=== PATIENT | female | born 1950 | race Caucasian/White ===

== ENCOUNTER 2016-08-15 09:47 | Outpatient (CLI) | payer OTHER ==
[~2016-08-15] VITALS: Ht 154.3 cm; Wt 99.8 kg
[~2016-08-15 09:47] MED LIST: ASCO100025 PO; CETI10TA17 PO; DULO60CA6 PO; FAMO20TA5 PO; FISH1CAP15 PO; FLUT9.9S NS; HYDR-3812 PO; HYDR50TA3 PO; LANS30CA PO; LOSA25TA5 PO; METO-272 PO; MNTL10T PO; ORPH100T PO; TRAM-42 PO
[2016-08-15] MEDS ORDERED: MALIC ACID PO (10:08)
[2016-08-15] MEDS ORDERED: IODI150T PO (10:08)
[2016-08-15] MEDS ORDERED: FAMO20TA3 PO (10:08)
[2016-08-15] MEDS ORDERED: POTASSIUM PO (10:08)
[2016-08-15 10:09] VITALS: BP 153/86
[2016-08-15] MEDS ORDERED: NAPR220T66 PO (10:21)
== END 2016-08-15 10:20 | disposition home or self-care (01) ==
LOC: PREOP 09:47
PROVIDERS: ATTEND Orthopaedic Surgery
DX: Z01.818 Encounter for other preprocedural examination (principal); Z11.2 Encounter for screening for other bacterial diseases; M23.8X2 Other internal derangements of left knee
CPT/HCPCS: 87081

== ENCOUNTER 2016-08-31 06:00 | Day surgery (SDC) | payer OTHER ==
--- NOTE | 2016-08-25 14:19 | HISTORY AND PHYSICAL ---
DATE OF SERVICE: 08/31/2016 HISTORY: The patient is a 65-year-old female with longstanding left knee pain swelling, catching and locking. Radiographs revealed moderate joint space narrowing, and the patient understands that an arthroscopy can help with her mechanical symptoms but will not alleviate her arthritic symptoms. She reports painful popping and swelling in her left knee. She reports pain with testing and kneeling. She reports it is not improved with injections, anti-inflammatories or rest and because of functional impairment, the patient has elected to proceed with surgical intervention. REVIEW OF SYSTEMS: No chest pain, no shortness of breath, no dysuria. PAST MEDICAL HISTORY: Hypertension, fibromyalgia, food allergies and seasonal allergies. PAST SURGICAL HISTORY: Right ankle cholecystectomy, hysterectomy, tonsillectomy and wisdom tooth extraction. FAMILY HISTORY: Diabetes, hypertension, prostate cancer, arthritis, ischemic heart disease. PRIMARY CARE PROVIDER: [facility]. MEDICATIONS: Metoprolol, Famotidine, hydrochlorothiazide, Losartan, Duloxetine, Cetirizine, Lansoprazole and Flonase. ALLERGIES: PENICILLIN AND MORPHINE. SOCIAL HISTORY: The patient denies alcohol and tobacco use. PHYSICAL EXAMINATION: GENERAL: The patient is well-developed, well-nourished in no acute distress. HEENT: Normocephalic, atraumatic. Pupils are equal, round and react to light. Oropharynx is clear. NECK: Supple with no lymphadenopathy. LUNGS: Clear to auscultation bilaterally. HEART: Regular rate and rhythm. ABDOMEN: Soft, nontender and nondistended. EXTREMITIES: The left knee demonstrates a moderate effusion. She has patellofemoral crepitus and pain to the and she is tender along her medial joint line and has pain medially with Juan's. 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 She has pain medially with Juan's. She ambulates with an antalgic gait. 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 PLAN: Left knee arthroscopy, partial meniscectomy and chondroplasty. The risks, benefits, options, ramifications and recovery have been discussed at length with the patient. She understands and wishes to proceed. Job ID: [id number] DocumentID: [id number] Dictated Date: 08/25/2016 13:54:13 Drilling Supervisor Date: 08/25/2016 14:18:56 Dictated By: PELON WILLS MD
[~2016-08-31] VITALS: Ht 154.3 cm; Wt 99.8 kg
[~2016-08-31 06:00] MED LIST changes: +FAMO20TA3 PO; +IODI150T PO; +MALIC ACID PO; +NAPR220T66 PO; +POTASSIUM PO
[2016-08-31] MEDS ORDERED: CLINDAMYCIN 600 MG/50 ML IVPB 50 ML IV ONE (06:27)
[2016-08-31 06:30] VITALS: BP 147/71
[2016-08-31] MEDS ORDERED: FAMOTIDINE 20MG/2ML IV (PEPCID) ONE (06:41)
[2016-08-31] MEDS ORDERED: CLINDAMYCIN 600 MG/NS 50 ML IVPB IV ONE (06:45)
[2016-08-31] MEDS ORDERED: CATHETER FLUSH 10 ML SYR IV PRN (06:45)
[2016-08-31] MEDS ORDERED: LACTATED RINGERS 1,000 ML IV PRN (06:46)
[2016-08-31] MEDS ORDERED: fentaNYL INJECTION 100 MCG/2 ML AMP ONE (06:52)
[2016-08-31] MEDS ORDERED: proPOfol 200 MG/20 ML (DIPRIVAN) VIAL IV ONE (06:52)
[2016-08-31] MEDS ORDERED: SEVOFLURANE (ULTANE) 15 ML INHAL SOLN ONE (06:52)
[2016-08-31] MEDS ORDERED: MIDAZOLAM 2 MG/2 ML (VERSED) VIAL ONE (06:52)
[2016-08-31] MEDS ORDERED: LACTATED RINGERS 1,000 ML IV ONE (06:52)
[2016-08-31] MEDS ORDERED: LIDOCAINE PF 2% 10 ML (XYLOCAINE) AMP ONE (06:52)
[2016-08-31] MEDS ORDERED: ONDANSETRON 4 MG/2 ML (SDV) Z0FRAN ONE (06:52)
[2016-08-31] MEDS ORDERED: DEXAMETHASONE PF 10 MG/ML (DECADRON) VIAL ONE (06:53)
[2016-08-31] MEDS ORDERED: ROCURONIUM 50 MG/5 ML (ZEMURON) VIAL IV ONE (06:59)
[2016-08-31] MEDS ORDERED: FAMOTIDINE 20MG/2ML IV (PEPCID) IV ONE (07:00)
[2016-08-31] MEDS ORDERED: ONDANSETRON 4 MG/2 ML (SDV) Z0FRAN IV ONE (07:00)
[2016-08-31] MEDS ORDERED: morphine PF (DURAMORPH) 10 MG/10 ML AMP ONE (07:03)
[2016-08-31] MEDS ORDERED: BUPIVACAINE 0.25% 30 ML (SENSORCAINE) VIAL ONE (07:03)
--- NOTE | 2016-08-31 07:20 | Progress Note-Pre Operative ---
Pre-Operative Progress Note H&P Reviewed The H&P was reviewed, patient examined and no changes noted. Date H&P Reviewed: Aug 31, 2016 Time H&P Reviewed: 07:11 Pre-Operative Diagnosis: left knee medial meniscal tear and chondromalacia PELON WILLS MD Aug 31, 2016 07:20
--- NOTE | 2016-08-31 07:21 | Progress Note-Post Operative ---
Post-Operative Progess Note Surgeon (s)/Hammerer Helper (s) Surgeon PELON WILLS MD Hammerer Helper: Omari Ellis Pre-Operative Diagnosis left knee medial meniscal tear and chondromalacia Post-Operative Diagnosis left knee medial and lateral meniscal tears and chondromalacia of the medial femoral condyle, lateral tibial plateau and trochlea Post-Op Procedure Note Date of Procedure: Aug 31, 2016 Name of Procedure Performed: left knee arthroscopic partial medial and lateral meniscectomies and chondroplasty of the medial femoral condyle, lateral tibial plateau and trochlea Description of the Procedure: see operative note Findings of the Procedure medial and lateral meniscal tears and chondromalacia Anesthesia Type GETA Estimated blood loss (mL): minimal Packing: none Specimen(s) collected/removed none PELON WILLS MD Aug 31, 2016 07:21
[2016-08-31] MEDS ORDERED: HYDROcodone/APAP 7.5 MG/325 MG (LORTAB, LORCET PLUS) TABLET PO PRN (07:30)
[2016-08-31] MEDS ORDERED: GLYCOPYRROLATE 0.2 MG/ML (ROBINUL) 2 ML VIAL ONE (07:54)
[2016-08-31] MEDS ORDERED: NEOSTIGMINE (BLOXIVERZ ) 1 MG/1ML 10 ML VIAL ONE (07:54)
[2016-08-31] MEDS ORDERED: fentaNYL INJECTION 100 MCG/2 ML AMP IVP PRN (08:15)
[2016-08-31] MEDS ORDERED: KETOROLAC 30 MG/ML VIAL IVP ONE (08:15)
[2016-08-31] MEDS ORDERED: HYDROmorphone (DILAUDID) 2 MG/ML VIAL IVP PRN (08:15)
[2016-08-31] MEDS ORDERED: KETOROLAC 30 MG/ML VIAL ONE (08:39)
[2016-08-31] MEDS ORDERED: ONDANSETRON 4 MG/2 ML (SDV) Z0FRAN IVP PRN (09:00)
[2016-08-31 09:05] VITALS: BP 120/62
[2016-08-31] MEDS ORDERED: HYDR-3816 PO (09:30)
[2016-08-31 09:35] VITALS: BP 129/60
[2016-08-31 10:15] VITALS: BP 128/84
[2016-08-31 10:34] VITALS: BP 128/84
--- NOTE | 2016-08-31 10:50 | Physical Therapy Ortho Eval ---
PT Orthopedic Evaluation Type of Surgery Knee Scope Left knee TMM Prior Level of Function Current Living Status: Spouse Locomotion (Upon Admit): Independent Established Durable Medical Eq: Front Wheeled Walker Subjective Entry Into Home: Level Entry Motor Control Motor Control: Motor Control WNL ROM ROM: WFL Strength Strength: WFL Transfer Transfers (B, C, W/C) (FIM): 5 (initially, post treatment, mod indep) Gait Gait Assistive Device: FWW Gait training with FWW with cues for proper use and how to adjust walker at home ; training up/down a curb step with FWW as well. Pt safe with gait and on curb step. Post treatment, pt was mod indep with gait. Educated pt that she can use the walker as needed. Weight Bearing Restriction: Weight Bearing/Tolerated Location Restriction: L LE Gait (FIM): 5 (6 post treatment) Distance (FIM): 3=150 ft Treatment Rendered Treatment: Therapeutic Exercises, Gait Train, Step Train Exercise Instruction: Quad Sets, Straight Leg Raise, Heel Slides Assessment/Goals Goal Time Frame: 1 Visit Understands HEP: Yes Safe Ambulation: Yes Plan Treatment Plan: Discharge, Education, Gait PT/Family Agrees to Plan: Yes Time Time In: 955 Time Out: 1022 Total Billed Treatment Time: 27 Billed Treatment Time visit KIRILL SMITH PT Aug 31, 2016 10:50
--- NOTE | 2016-09-01 01:29 | OPERATIVE REPORT ---
DATE OF SERVICE: 08/31/2016 PREOPERATIVE DIAGNOSES: 1. Left knee medial meniscal tear. 2. Left knee chondromalacia medial femoral condyle. POSTOPERATIVE DIAGNOSES: 1. Left knee medial meniscal tear. 2. Left knee chondromalacia medial femoral condyle. 3. Left knee chondromalacia lateral tibial plateau. 4. Left knee chondromalacia of the trochlea. 5. Left knee lateral meniscal tear. PROCEDURES: 1. Left knee arthroscopic partial medial meniscectomy. 2. Left knee arthroscopic partial lateral meniscectomy. 3. Left knee arthroscopic chondroplasty of the medial femoral condyle. 4. Left knee arthroscopic chondroplasty of the lateral tibial plateau. 5. Left knee arthroscopic chondroplasty of the trochlea. SURGEON: Pelon Wills MD. HAIR WEAVER: KATHERYN Abraham, who assisted throughout the procedure and closed the incisions. ANESTHESIA: General endotracheal by , HAND SHAKER. TOURNIQUET TIME: ESTIMATED BLOOD LOSS: Minimal. DRAINS: None. COMPLICATIONS: None. POSTOPERATIVE PLAN: Routine arthroscopy protocol. The patient was transported to the recovery room awake and in stable condition. STATEMENT OF ORAL CONSENT: The patient is a 65-year-old female with progressively worsening left medial knee pain catching, locking and swelling. She had undergone treatment with activity modifications, anti-inflammatories and injections without relief. Due to functional impairment, the patient elected to proceed with surgical intervention. Radiographs revealed moderate medial joint space narrowing. The patient was counseled that an arthroscopy could help with her mechanical symptoms but would not alleviate her arthritic symptoms. EXAMINATION UNDER ANESTHESIA: Revealed range of motion 0/0/135. No varus or valgus laxity. Negative anterior and posterior drawer. ARTHROSCOPIC FINDINGS: The patella demonstrated diffuse grade 2 chondral softening centrally with no unstable chondral flaps and a 10x10 area of the trochlea demonstrating grade 3 chondral flap superiorly in a 10x10 area. The medial and lateral gutters were clear. The lateral compartment demonstrated a flap tear of the body of the lateral meniscus involving approximately 20% of the body. In addition, there was a grade 3 chondral flap on the lateral tibial plateau in an 8x8 area. The ACL and PCL were intact. The medial compartment demonstrated an unstable parrot beak tear of the body of the medial meniscus extending to the posterior horn involving approximately 30% of the body and posterior horn. There was grade 4 chondral loss in adjacent areas of the tibial plateau and femoral condyle in a 5x10 area medially and in the central portion, the weightbearing portion of the medial femoral condyle there was a grade 3 chondral flap in a 10x10 area. PROCEDURE: After risks and benefits of procedure were discussed and questions were answered, an informed consent was signed and placed on the chart. The operative site was confirmed in the preoperative holding area initialed by the surgeon. The patient was then transported to the operating room and after adequate levels of general endotracheal anesthetic were obtained, a timeout was called confirming the operative site and examination under anesthesia was performed with the above findings noted. The left lower extremity was then prepped and draped in the usual sterile fashion. The knee joint was injected with 60 cc of fluid and a standard inferior lateral portal was placed for the arthroscope and inflow cannula. Under direct visualization an inferior medial portal was created and diagnostic arthroscopy was carried out with the above findings noted. The unstable chondral flaps on the trochlea were debrided with the shaver back to a stable edge. The scope was then redirected into the lateral compartment where the unstable lateral meniscus tear was debrided with the shaver back to a stable edge, and the unstable chondral flap on the lateral tibial plateau was debrided with the shaver back to a stable a stable edge. The meniscus was carefully probed with no further tearing or instability noted. The scope was then redirected into the medial compartment where the unstable medial meniscus was debrided with the shaver back to a stable edge. This was carefully probed with no further tearing or instability noted. Then unstable chondral flaps in the medial femoral condyle were debrided with the shaver back to a stable edge as well. The knee was copiously irrigated. The port sites were closed with 3-0 nylon in a simple interrupted fashion. The port sites were infiltrated with plain Marcaine. A soft dressing was applied and the patient was transported to the recovery room awake and in stable condition. Job ID: [id number] DocumentID: [id number] Dictated Date: 08/31/2016 08:02:14 Clarity Specialists Date: 08/31/2016 19:56:55 Dictated By: PELON WILLS MD
== END 2016-08-31 10:34 | disposition home or self-care (01) ==
LOC: SDC 06:00
PROVIDERS: ATTEND Orthopaedic Surgery
DX: M23.8X2 Other internal derangements of left knee (principal); M94.29 Chondromalacia, multiple sites; I10 Essential (primary) hypertension; M79.7 Fibromyalgia; Z79.899 Other long term (current) drug therapy

== ENCOUNTER → 2017-01-10 | Outpatient (CLI) | payer OTHER ==
[~2017-01-10] MED LIST changes: +HYDR-3816 PO
--- NOTE | 2017-01-10 13:44 | Diagnostic Imaging Report ---
INDICATION: Screening. The current study was also evaluated with a Computer Aided Detection (CAD) system. Comparison made with prior examination 02/02/2015; 08/18/2014; 01/31/2014. FINDINGS: There is a moderate amount of residual fibroglandular tissue bilaterally. There are a few benign-type calcifications. There is a new ovoid mass in the subareolar region of the right breast. No spiculated lesion or suspicious calcifications are identified. IMPRESSION: Category 0, further imaging needed. ACR BI-RADS Category 0: Incomplete. (Needs additional imaging evaluation). Result letter will be mailed to the patient. Note: At least 10% of breast cancer is not imaged by mammography. Ovoid mass in the subareolar region of the right breast. Further evaluation spot compression views and ultrasound is recommended. Dictated by: Dictated on workstation # [id number]
== END ==
LOC: RAD 07:23
PROVIDERS: ATTEND Nurse Practitioner Community Health
DX: Z12.31 Encounter for screening mammogram for malignant neoplasm of breast (principal); N63 Unspecified lump in breast
CPT/HCPCS: 77067

== ENCOUNTER → 2017-01-23 | Outpatient (CLI) | payer OTHER ==
--- NOTE | 2017-01-23 10:57 | Diagnostic Imaging Report ---
Right breast diagnostic mammogram with tomography. CAD is utilized. INDICATION: Focal asymmetry in the periareolar region. FINDINGS: Periareolar mass in the medial superior periareolar region is confirmed and is circumscribed suggestive of benign etiology. It is about 1 cm in length and is oval in shape. IMPRESSION: Confirmed 1-cm mass in the periareolar medial superior aspect of the right breast with benign-appearing features. Ultrasound evaluation pending. ACR BI-RADS Category 0: Incomplete. (Needs additional imaging evaluation). Result letter will be mailed to the patient. Note: At least 10% of breast cancer is not imaged by mammography. Dictated by: Dictated on workstation # [id number]
--- NOTE | 2017-01-23 10:57 | Diagnostic Imaging Report ---
EXAMINATION: Right breast ultrasound. INDICATION: Mass in the medial superior periareolar region seen on mammography. FINDINGS: There is a 0.9 x 0.5 x 0.5 cm cystic lesion seen at the 1 o'clock zone 3 cm from the nipple with internal echogenicity, likely related to debris. No internal vascularity is seen. No suspicious mass is seen otherwise. IMPRESSION: There is a 0.9 cm cystic lesion with echogenicity, likely related to debris. A 6 month followup ultrasound is recommended to ensure no adverse development. ACR BI-RADS Category 3: Probably benign findings. Dictated by: Dictated on workstation # [id number]
== END ==
LOC: RAD 09:00
PROVIDERS: ATTEND Nurse Practitioner Community Health
DX: R92.8 Other abnormal and inconclusive findings on diagnostic imaging of breast (principal)

== ENCOUNTER → 2017-07-24 | Outpatient (CLI) | payer OTHER ==
[~2017-07-24] MED LIST changes: +ACHD5005 PO; +HYDR-34 PO; -HYDR-3812 PO; -HYDR-3816 PO
--- NOTE | 2017-07-24 12:09 | Diagnostic Imaging Report ---
INDICATION: Right breast complex cyst. The patient presents for a 6 month followup. COMPARISON: Right breast ultrasound from 01/23/2017. FINDINGS: Sonographic interrogation of the right breast was performed. The previously noted complex cyst at the 1 o'clock location is no longer visualized. No new mass is detected. IMPRESSION: The previously noted complex cyst has resolved at the 1 o'clock location. The patient should return to routine annual screening mammography. ACR BI-RADS Category 1: Negative. Dictated by: Dictated on workstation # [id number]
== END ==
LOC: RAD 10:27
PROVIDERS: ATTEND Nurse Practitioner Community Health
DX: Z09 Encounter for follow-up examination after completed treatment for conditions other than malignant neoplasm (principal); R92.8 Other abnormal and inconclusive findings on diagnostic imaging of breast

== ENCOUNTER → 2020-02-24 | Outpatient (CLI) | payer OTHER ==
--- NOTE | 2020-02-24 11:27 | Diagnostic Imaging Report ---
EXAMINATION: Digital mammogram INDICATION: Bilateral screening This study was compared to the prior exams of 01/10/2017 and 02/02/2015. At this time there are no current complaints. On the craniocaudad view of the left breast in the medial aspect of the breast approximately 11 cm from the nipple there is a small 5 mm asymmetry. This finding is not as conspicuous on the tomographic images and is difficult to identify with certainty on the MLO view. This may well be due to fibroglandular tissue alone. Even so, I would recommend that compression view of this area be obtained in the CC projection as well as a true lateral view of the left breast for further study. Ultrasound should also be performed. The right breast is unchanged. The fibroglandular tissue in both breasts is heterogeneously dense. This does limit the sensitivity of this exam. IMPRESSION: Additional mammographic views and ultrasound of the left breast would be recommended for further study. ACR category 0 ACR BI-RADS Category 0: Incomplete. (Needs additional imaging evaluation). Result letter will be mailed to the patient. Note: At least 10% of breast cancer is not imaged by mammography. Dictated by: Dictated on workstation # [id number]
== END ==
LOC: RAD 08:30
PROVIDERS: ATTEND Nurse Practitioner Community Health
DX: Z12.31 Encounter for screening mammogram for malignant neoplasm of breast (principal)
CPT/HCPCS: 77063; 77067

== ENCOUNTER → 2020-03-09 | Outpatient (CLI) | payer OTHER ==
--- NOTE | 2020-03-09 13:46 | Diagnostic Imaging Report ---
INDICATION: Left breast density. Patient presents for additional views. Correlation is made with recent screening study from 02/24/2020 as well as prior mammograms from 01/10/2017 and 02/02/2015. Unilateral left 2-D and 3-D diagnostic mammography was performed. This included spot compression CC, rolled CC and 90 degree lateral views. Circumscribed density in the medial left breast is not noted and has been present on prior mammograms is consistent with benign etiology. The density noted more anterior to this in the medial left breast appears to resolve with additional views and most likely represent superimposed tissue. No spiculated mass or malignant appearing microcalcifications are seen. IMPRESSION: BI-RADS Category 2 No mammographic features suspicious for malignancy are identified. Patient may return to routine annual screening mammography. ACR BI-RADS Category 2: Benign findings. Result letter will be mailed to the patient. Note: At least 10% of breast cancer is not imaged by mammography. Dictated by: Dictated on workstation # [id number]
== END ==
LOC: RAD 12:42
PROVIDERS: ATTEND Nurse Practitioner Community Health
DX: R92.2 Inconclusive mammogram (principal)
CPT/HCPCS: 77065; G0279

== ENCOUNTER 2020-05-26 05:33 | Outpatient (RCR) | payer OTHER ==
[~2020-05-26] VITALS: Ht 152.4 cm; Wt 102.3 kg
[2020-05-26] MEDS ORDERED: LOSA25TA41 PO (14:36)
[2020-05-26] MEDS ORDERED: HYDR50TA3 PO (14:36)
[2020-05-26] MEDS ORDERED: DULO60CA59 PO (14:36)
[2020-05-26] MEDS ORDERED: CETI10TA17 PO (14:36)
[2020-05-26] MEDS ORDERED: METO50TA7 PO (14:36)
[2020-05-26] MEDS ORDERED: LANS30TA9 PO (14:36)
[2020-05-26] MEDS ORDERED: FISH1CAP15 PO (14:36)
[2020-05-26] MEDS ORDERED: MONT10TA97 PO (14:36)
== END 2020-06-09 12:15 | disposition home or self-care (01) ==
LOC: PREOP 05:33
PROVIDERS: ATTEND Specialist
DX: Z01.812 Encounter for preprocedural laboratory examination (principal); H25.12 Age-related nuclear cataract, left eye; Z20.822 Contact with and (suspected) exposure to COVID-19
CPT/HCPCS: 87635

== ENCOUNTER 2020-05-29 06:03 | Day surgery (SDC) | payer MEDICARE, OTHER ==
[~2020-05-29] VITALS: Ht 152 cm; Wt 102.3 kg
[~2020-05-29 06:03] MED LIST changes: +DULO60CA59 PO; +LANS30TA9 PO; +LOSA25TA41 PO; +METO50TA7 PO; +MONT10TA97 PO
[2020-05-29] MEDS ORDERED: LIDOCAINE PF 1% 2 ML VIAL IR PRN (06:15)
[2020-05-29] MEDS ORDERED: MOXIFLOXACIN OPHTH SOLN 5 MG/ML 0.3 ML SYRINGE OP ONE (06:15)
[2020-05-29] MEDS ORDERED: POVIDONE (BETADINE) OPHTH SOLN 5% 30 ML OP ONE (06:15)
[2020-05-29] MEDS ORDERED: TIMOLOL MALEATE 0.5% 5 ML (TIMOPTIC) BTL OU PRN (06:15)
[2020-05-29] MEDS: TETRACAINE 0.5% OPHTH SOLN 4 ML BTL (SINGLE DOSE ONLY) OU PRN ×4 (06:28→06:46)
[2020-05-29 06:33] VITALS: BP 163/75
[2020-05-29] MEDS: PHENYLEPHRINE 10% OPHTH (NEO-SYN) 5 ML BTL OU SCH ×3 (06:36→06:46)
[2020-05-29] MEDS: TROPICAMIDE 1% OPH SOLN (MYDRIACYL) 15 ML BTL OP SCH ×3 (06:36→06:47)
[2020-05-29] MEDS ORDERED: MIDAZOLAM 2 MG/2 ML (VERSED) VIAL ONE (07:09)
--- NOTE | 2020-05-29 07:18 | Ophthalmologist Pre-Op Note ---
Pre-Operative Progress Note H&P Reviewed The H&P was reviewed, patient examined and no changes noted. Date H&P Reviewed: May 29, 2020 Time H&P Reviewed: 07:17 Pre-Op Dx Cataract, Left Eye SYMONE AHUMADA MD May 29, 2020 07:17
--- NOTE | 2020-05-29 07:45 | Ophthalmology Operative Report ---
Cataract removal/placement IOL PREOPERATIVE DIAGNOSIS: Cataract Left Eye POSTOPERATIVE DIAGNOSIS: Cataract Left Eye PROCEDURE: Cataract removal and placement of posterior chamber implant, left eye SURGEON: Christian Ahumada ANESTHESIA: Topical with sedation COMPLICATIONS: None ESTIMATED BLOOD LOSS: Minimal DESCRIPTION OF PROCEDURE: After proper informed consent was obtained, the patient, a 69 female, was taken to the Operating Room and the left eye was anesthetized with tetracaine. The left eye was then prepped and draped in the usual manner. A wire lid speculum was placed. A paracentesis was made at the left hand position. Preservative free lidocaine was injected into the anterior chamber followed by viscoelastic. A clear corneal incision was made in the temporal position. A capsulorrhexis was preformed and the central nuclear and cortical material were removed. The posterior capsule was polished and an Girish 20.0 AU00T0 was placed into the capsular bag. The residual viscoelastic was aspirated and balanced saline solution was injected into the anterior chamber. Moxifloxacin was injected into the anterior chamber. The wound was checked and found to be water tight. The patient tolerated the procedure well without complications. CHRISTIAN AHUMADA MD May 29, 2020 07:45
[2020-05-29 08:00] VITALS: BP 148/89
[2020-05-29] MEDS ORDERED: acetaZOLAMIDE ER 500 MG CAP (DIAMOX SEQUELS) PO ONE (08:00)
--- NOTE | 2020-05-29 09:27 | Anesthesia-General Post-Op ---
MAC Patient Condition Mental Status/LOC: Same as Preop Cardiovascular: Satisfactory Nausea/Vomiting: Absent Respiratory: Satisfactory Pain: Controlled Complications: Absent Post Op Complications Complications None Follow Up Care/Instructions Patient Instructions None needed. Anesthesiology Discharge Order Discharge Order Patient is doing well, no complaints, stable vital signs, no apparent adverse anesthesia problems. No complications reported per nursing. BALJIT BUTCHER CRNA May 29, 2020 09:27
== END 2020-05-29 08:00 ==
LOC: SDC 06:03
PROVIDERS: ATTEND Specialist
DX: H25.12 Age-related nuclear cataract, left eye (principal); I10 Essential (primary) hypertension; F41.9 Anxiety disorder, unspecified; Z79.899 Other long term (current) drug therapy; Z88.0 Allergy status to penicillin; Z88.5 Allergy status to narcotic agent; Z91.040 Latex allergy status; Z80.43 Family history of malignant neoplasm of testis
CPT/HCPCS: 66984; V2632

== ENCOUNTER 2020-06-10 05:41 | Outpatient (RCR) | payer OTHER | END 2020-06-10 13:59 | disposition home or self-care (01) | LOC: PREOP 05:41 | PROVIDERS: ATTEND Specialist | DX: Z01.812 Encounter for preprocedural laboratory examination (principal); H25.9 Unspecified age-related cataract; Z53.9 Procedure and treatment not carried out, unspecified reason ==

== ENCOUNTER 2020-06-12 06:00 | Day surgery (SDC) | payer OTHER ==
[~2020-06-12] VITALS: Ht 152.4 cm; Wt 102.3 kg
[2020-06-12 06:10] VITALS: BP 160/81
[2020-06-12] MEDS ORDERED: POVIDONE (BETADINE) OPHTH SOLN 5% 30 ML OP ONE (06:15)
[2020-06-12] MEDS ORDERED: MOXIFLOXACIN OPHTH SOLN 5 MG/ML 0.3 ML SYRINGE OP ONE (06:15)
[2020-06-12] MEDS ORDERED: LIDOCAINE PF 1% 2 ML VIAL IR PRN (06:15)
[2020-06-12] MEDS ORDERED: TIMOLOL MALEATE 0.5% 5 ML (TIMOPTIC) BTL OU PRN (06:15)
[2020-06-12] MEDS: TETRACAINE 0.5% OPHTH SOLN 4 ML BTL (SINGLE DOSE ONLY) OU PRN ×4 (06:19→06:35)
[2020-06-12] MEDS: PHENYLEPHRINE 10% OPHTH (NEO-SYN) 5 ML BTL OU SCH ×3 (06:25→06:35)
[2020-06-12] MEDS: TROPICAMIDE 1% OPH SOLN (MYDRIACYL) 15 ML BTL OP SCH ×3 (06:25→06:35)
[2020-06-12] MEDS ORDERED: MIDAZOLAM 2 MG/2 ML (VERSED) VIAL ONE (06:46)
--- NOTE | 2020-06-12 06:50 | Ophthalmologist Pre-Op Note ---
Pre-Operative Progress Note H&P Reviewed The H&P was reviewed, patient examined and no changes noted. Date H&P Reviewed: Jun 12, 2020 Time H&P Reviewed: 06:50 Pre-Op Dx Cataract, Right Eye SYMONE AHUMADA MD Jun 12, 2020 06:50
[2020-06-12 07:20] VITALS: BP 148/92
--- NOTE | 2020-06-12 07:22 | Ophthalmology Operative Report ---
Cataract removal/placement IOL PREOPERATIVE DIAGNOSIS: Cataract Right Eye POSTOPERATIVE DIAGNOSIS: Cataract Right Eye PROCEDURE: Cataract removal and placement of posterior chamber implant, right eye SURGEON: Christian Ahumada ANESTHESIA: Topical with sedation COMPLICATIONS: None ESTIMATED BLOOD LOSS: Minimal DESCRIPTION OF PROCEDURE: After proper informed consent was obtained, the patient, a 69 female, was taken to the Operating Room and the right eye was anesthetized with tetracaine. The right eye was then prepped and draped in the usual manner. A wire lid speculum was placed. A paracentesis was made at the left hand position. Preservative free lidocaine was injected into the anterior chamber followed by viscoelastic. A clear corneal incision was made in the temporal position. A capsulorrhexis was preformed and the central nuclear and cortical material were removed. The posterior capsule was polished and Girish 21.0 AU00T0 IOL was placed into the capsular bag. The residual viscoelastic was aspirated and balanced saline solution was injected into the anterior chamber. Moxifloxacin was injected into the anterior chamber. The wound was checked and found to be water tight. The patient tolerated the procedure well without complications. CHRISTIAN AHUMADA MD Jun 12, 2020 07:22
[2020-06-12] MEDS ORDERED: acetaZOLAMIDE ER 500 MG CAP (DIAMOX SEQUELS) PO ONE (07:30)
--- NOTE | 2020-06-12 10:53 | Anesthesia-General Post-Op ---
MAC Patient Condition Mental Status/LOC: Same as Preop Cardiovascular: Satisfactory Nausea/Vomiting: Absent Respiratory: Satisfactory Pain: Controlled Complications: Absent Post Op Complications Complications None Follow Up Care/Instructions Patient Instructions None needed. Anesthesiology Discharge Order Discharge Order Patient is doing well, no complaints, stable vital signs, no apparent adverse anesthesia problems. No complications reported per nursing. GAVIN BA CRNA Jun 12, 2020 10:53
== END 2020-06-12 07:10 ==
LOC: SDC 06:00
PROVIDERS: ATTEND Specialist
DX: H25.11 Age-related nuclear cataract, right eye (principal); I10 Essential (primary) hypertension; F41.9 Anxiety disorder, unspecified; G62.9 Polyneuropathy, unspecified; M19.90 Unspecified osteoarthritis, unspecified site; Z79.899 Other long term (current) drug therapy; Z88.0 Allergy status to penicillin; Z88.5 Allergy status to narcotic agent; Z91.040 Latex allergy status; Z80.43 Family history of malignant neoplasm of testis
CPT/HCPCS: 66984; V2632

== ENCOUNTER → 2020-09-07 | Outpatient (CLI) | payer OTHER ==
[~2020-09-07] MED LIST changes: +HYDR50TA6 PO; +MONT10TA32 PO; -MONT10TA97 PO
== END ==
LOC: CARD 11:52
PROVIDERS: ATTEND Nurse Practitioner Family
DX: R06.02 Shortness of breath (principal)
CPT/HCPCS: 93306

== ENCOUNTER → 2020-09-14 | Outpatient (CLI) | payer OTHER ==
[~2020-09-14] MED LIST changes: +RT-ALBUTEROL SULF 2.5 MG/3 ML PRE-MIX VIAL INH ONE
== END ==
LOC: RT 07:43
PROVIDERS: ATTEND Nurse Practitioner Family
DX: R05 Cough (principal); R06.02 Shortness of breath
CPT/HCPCS: 94060; 94726; 94729

== ENCOUNTER → 2020-09-22 | Outpatient (CLI) | payer OTHER ==
[~2020-09-22] VITALS: Ht 149 cm; Wt 100.0 kg
[~2020-09-22] MED LIST changes: +CATHETER FLUSH 10 ML SYR IV PRN; +REGADENOSON 0.4 MG/5 ML SYR (LEXISCAN) IV ONE; -RT-ALBUTEROL SULF 2.5 MG/3 ML PRE-MIX VIAL INH ONE
[2020-09-22 08:55] VITALS: BP 173/93
--- NOTE | 2020-09-22 15:39 | STRESS TEST ---
DATE OF SERVICE: 09/22/2020 RESTING AND POST REGADENOSON TECHNETIUM-99M TETROFOSMIN SPECT CT IMAGING ORDERING PHYSICIAN: Dr. Hopkins. PRIMARY PHYSICIAN: [facility]. CLINICAL DIAGNOSIS: Shortness of breath. Baseline images were carried out after injection of 10.74 mCi of technetium-99m Tetrofosmin. This was followed by 0.4 mg regadenoson and 29.7 mCi of technetium-99m Tetrofosmin for stress imaging. The electrocardiogram showed sinus rhythm with isolated premature ventricular contraction. The electrocardiogram did not change significantly with regadenoson infusion. The patient noted some flushing and shortness of breath following regadenoson infusion, which resolved in a few minutes. Review of images at rest and following stress does not indicate any significant perfusion defects consistent with myocardial ischemia or infarction. Gated images show normal global left ventricular systolic function with normal regional wall motion. Left ventricular ejection fraction is calculated to be 84%. Left ventricular end diastolic volume is 38 mL. TID is absent (1.05). CONCLUSIONS: 1. No evidence of any significant myocardial ischemia or infarction on this study. 2. Normal to hyperdynamic left ventricular systolic function with a calculated ejection fraction 84%. Job ID: [id number] DocumentID: [id number] Dictated Date: 09/22/2020 15:02:51 Machinist Linotype Date: 09/22/2020 15:38:37 Dictated By: BRITANY HOPKINS MD, MA, FACP, FACC,
== END ==
LOC: CARD 07:30
PROVIDERS: ATTEND Internal Medicine Cardiovascular Disease
DX: R06.02 Shortness of breath (principal)
CPT/HCPCS: 78452; 93017; A9502

== ENCOUNTER → 2020-09-28 | Outpatient (CLI) | payer OTHER ==
[~2020-09-28] MED LIST changes: -CATHETER FLUSH 10 ML SYR IV PRN; -REGADENOSON 0.4 MG/5 ML SYR (LEXISCAN) IV ONE
--- NOTE | 2020-09-28 09:54 | Diagnostic Imaging Report ---
PROCEDURE: CT chest without contrast. TECHNIQUE: Multiple contiguous axial images were obtained through the chest without the use of intravenous contrast. Auto Exposure Controls were utilized during the CT exam to meet ALARA standards for radiation dose reduction. INDICATION: Shortness of breath with some chest tightness. CORRELATION: None. FINDINGS: A few small shotty mediastinal and hilar lymph nodes are present. Heart size is at the upper limits of normal. Mild coronary artery calcification. Thoracic aortic contour with slight ectasia of the ascending aorta to 3.8 cm. The lung johnston are clear of infiltrate. Minimal areas of scarring or atelectasis are present. Calcified granulomas in the left upper lobe and right lung base. No infiltrate. No significant effusion. Low-density mass superior pole of the left kidney favors a probable cyst. Gallbladder is likely absent. Accentuated thoracic kyphosis with degenerative changes of the thoracic spine. IMPRESSION: Negative for acute abnormality of the chest on noncontrast imaging. If symptoms persist, post contrast imaging would be recommended. Dictated by: Dictated on workstation # [id number]
== END ==
LOC: RAD 08:15
PROVIDERS: ATTEND Nurse Practitioner Family
DX: R93.89 Abnormal findings on diagnostic imaging of other specified body structures (principal); R05 Cough; R06.02 Shortness of breath
CPT/HCPCS: 71250

== ENCOUNTER 2021-01-08 20:48 | Outpatient (CLI) | payer OTHER, MEDICARE | END 2021-01-09 06:42 | disposition home or self-care (01) | LOC: SLEEP 20:48 | PROVIDERS: ATTEND Nurse Practitioner Family | DX: G47.10 Hypersomnia, unspecified (principal); E66.01 Morbid (severe) obesity due to excess calories; R05 Cough; R06.02 Shortness of breath; R93.89 Abnormal findings on diagnostic imaging of other specified body structures | CPT/HCPCS: 95810 ==

== ENCOUNTER 2022-01-12 06:07 | Outpatient (CLI) | payer OTHER, MEDICARE ==
[~2022-01-12] VITALS: Ht 149.9 cm; Wt 98.9 kg
[~2022-01-12 06:07] MED LIST changes: +MONT-40 PO; -MONT10TA32 PO
[2022-01-12] MEDS ORDERED: CYCL1DRO OP (16:57)
[2022-01-12] MEDS ORDERED: BUDE10.26 IH (16:57)
[2022-01-12] MEDS ORDERED: CYCL10TA25 PO (16:57)
[2022-01-12] MEDS ORDERED: METF-478 PO (16:57)
== END 2022-01-12 17:09 | disposition home or self-care (01) ==
LOC: PREOP 06:07
PROVIDERS: ATTEND Surgery
DX: Z01.818 Encounter for other preprocedural examination (principal)

== ENCOUNTER → 2022-07-18 | Outpatient (CLI) | payer MEDICARE, OTHER ==
[~2022-07-18] MED LIST changes: +BUDE10.26 IH; +CYCL10TA25 PO; +CYCL1DRO OP; +METF-478 PO; +RT-ALBUTEROL SULF 2.5 MG/3 ML PRE-MIX VIAL INH ONE
== END ==
LOC: RT 08:00
PROVIDERS: ATTEND Nurse Practitioner Family
DX: J44.9 Chronic obstructive pulmonary disease, unspecified (principal)
CPT/HCPCS: 94060; 94726; 94729